=== PATIENT | female | born 1975 | race Caucasian/White ===

== ENCOUNTER 2017-12-19 05:50 | Day surgery (SDC) | payer OTHER ==
[~2017-12-19 05:50] MED LIST: TRICOR48 MG PO
[2017-12-19] MEDS ORDERED: ZITHROMAX TRI-500 MG PO (09:00)
[2017-12-19] MEDS ORDERED: ADVIL200 MG PO (09:00)
== END 2017-12-19 12:20 | disposition home or self-care (01) ==
LOC: CIR.AMB 05:50
DX: N93.8 Other specified abnormal uterine and vaginal bleeding (principal)